=== PATIENT | female | born 1965 | race Caucasian/White ===

== ENCOUNTER 2017-12-07 22:40 | Inpatient (IN) | payer BC ==
[~2017-12-07] VITALS: Ht 154.9 cm; Wt 99.1 kg
[2017-12-08 01:49] VITALS: BP 137/68; PULSE 109; RESP 18; TEMP 100.2; O2SAT 97
[2017-12-08] MEDS ORDERED: ACETAMINOPHEN 325 MG TAB PO PRN (02:30)
[2017-12-08] MEDS ORDERED: NALOXONE HCL 0.4 MG/ML AMP IV PUSH PRN (02:30)
[2017-12-08] MEDS: AMPICILLIN-SULBACTAM INJ 3 GM in SODIUM CHLORIDE 0.9% INJ 100 ML IV SCH ×4 (03:24→21:14)
[2017-12-08 05:51] VITALS: BP 127/68; PULSE 87; RESP 20; TEMP 98.8; O2SAT 98
[2017-12-08 07:09] VITALS: BP 131/75; PULSE 91; RESP 18; TEMP 98.7; O2SAT 96
[2017-12-08] MEDS: SODIUM CHLORIDE 0.9% FLUSH 10 ML FLUSH IV FLUSH SCH ×2 (09:43→21:00)
[2017-12-08] MEDS: SODIUM CHLORIDE 0.9% FLUSH 10 ML FLUSH IV FLUSH PRN ×3 (11:01→15:05)
[2017-12-08] MEDS: MORPHINE SULFATE 2 MG/ML INJ IV PUSH PRN ×2 (11:01→15:06)
[2017-12-08 11:21] VITALS: BP 166/77; PULSE 95; RESP 18; TEMP 98.8; O2SAT 95
[2017-12-08 15:19] VITALS: BP 132/72; PULSE 92; RESP 18; TEMP 98.3; O2SAT 92
[2017-12-08] MEDS ORDERED: INSULIN DETEMIR 100 UNITS/ML VIAL SQ ONE (16:00)
--- NOTE | 2017-12-08 16:11 | HHI.HP ---
[facility]PI [facility] Primary Care Physician Quinten Alvarez MD Admission Diagnosis Diagnoses: Travel History International Travel<30 Days: No Contact w/Intl Traveler <30 Da: No Traveled to Known Affected Are: No History of Present Illness 52-year-old female with no significant past medical history who presents overnight with 3 day history of constant sharp pain in the left and radiating to her fingers. She was bitten by her dog 3 days ago. She denies any chest pain, shortness of breath, lightheadedness, dizziness. Review of Systems Except as stated in HPI: all other systems reviewed are Neg Past Family Social History Past Medical History Patient denies any past medical history Past Surgical History Partial hysterectomy Meniscal surgery on the right knee Reported Medications Patient denies taking any home medications Allergies: Coded Allergies: No Known Allergies (Verified Allergy, Severe, 12/07/17) Family History Mother secondary to cervical cancer Father secondary to ID in his 50s. Social History Non-smoker. Occasional drinker. Denies illicit drugs. Physical Exam Vital Signs Vital Signs Date Time Temp Pulse Resp B/P (MAP) Pulse Ox O2 Delivery O2 Flow Rate FiO2 12/08/17 15:19 98.3 92 18 132/72 (92) 92 12/08/17 11:21 98.8 95 18 166/77 (106) 95 12/08/17 07:09 98.7 91 18 131/75 (93) 96 12/08/17 05:51 98.8 87 20 127/68 (87) 98 12/08/17 01:49 100.2 109 18 137/68 (91) 97 Physical Exam GENERAL: This is a well-nourished, well-developed patient, in no apparent distress. Alert and oriented 4. SKIN: No rashes, ecchymoses or lesions. Cool and dry. HEAD: Atraumatic. Normocephalic. No temporal or scalp tenderness. EYES: Pupils equal round and reactive. Extraocular motions intact. No scleral icterus. No injection or drainage. ENT: Nose without bleeding, purulent drainage or septal hematoma. Throat without erythema, tonsillar hypertrophy or exudate. Uvula midline. Airway patent. NECK: Trachea midline. No JVD or lymphadenopathy. Supple, nontender, no meningeal signs. CARDIOVASCULAR: Regular rate and rhythm without murmurs, gallops, or rubs. RESPIRATORY: Clear to auscultation. Breath sounds equal bilaterally. No wheezes , rales, or rhonchi. GASTROINTESTINAL: Abdomen soft, non-tender, nondistended. No hepato-splenomegaly , or palpable masses. No guarding. MUSCULOSKELETAL: Extremities without clubbing, cyanosis, or edema. Left hand with swelling, induration and erythema on the dorsum with clear drainage from puncture lesion posteriorly. Tender to palpation. Otherwise no joint tenderness, effusion, or edema noted. No calf tenderness. Negative Homans sign bilaterally. NEUROLOGICAL: Awake and alert. Cranial nerves II through XII intact. Motor and sensory grossly within normal limits. Five out of 5 muscle strength in all muscle groups. Normal speech. Imaging CT scan from deltoid the ER reviewed. Caprini VTE Risk Assessment Caprini VTE Risk Assessment: No/Low Risk (score <= 1) Caprini Risk Assessment Model Point Value = 1 Point Value = 2 Point Value = 3 Point Value = 5 Age 41-60 Minor surgery BMI > 25 kg/m2 Swollen legs Varicose veins or History of unexplained or recurrent spontaneous Oral contraceptives or hormone replacement Sepsis (< 1 month) Serious lung disease, including pneumonia (< 1 month) Abnormal pulmonary function Acute myocardial infarction Congestive heart failure (< 1 month) History of inflammatory bowel disease Medical patient at bed rest Age 61-74 Arthroscopic surgery Major open surgery (> 45 min) Laparoscopic surgery (> 45 min) Malignancy Confined to bed (> 72 hours) Immobilizing plaster cast Central venous access Age >= 75 History of VTE Family history of VTE Factor V Leiden Prothrombin [id number] Lupus anticoagulant Anticardiolipin antibodies Elevated serum homocysteine Heparin-induced thrombocytopenia Other congenital or acquired thrombophilia Stroke (< 1 month) Elective arthroplasty Hip, pelvis, or leg fracture Acute spinal cord injury (< 1 month) Prophylaxis Regimen Total Risk Factor Score Risk Level Prophylaxis Regimen 0-1 Low Early ambulation 2 Moderate Order ONE of the following: *Sequential Compression Device (SCD) *Heparin 5000 units SQ BID 3-4 Higher Order ONE of the following medications: *Heparin 5000 units SQ TID *Enoxaparin/Lovenox 40 mg SQ daily (WT < 150 kg, CrCl > 30 mL/min) *Enoxaparin/Lovenox 30 mg SQ daily (WT < 150 kg, CrCl > 10-29 mL/min) *Enoxaparin/Lovenox 30 mg SQ BID (WT < 150 kg, CrCl > 30 mL/min) AND/OR *Sequential Compression Device (SCD) 5 or more Highest Order ONE of the following medications: *Heparin 5000 units SQ TID (Preferred with Epidurals) *Enoxaparin/Lovenox 40 mg SQ daily (WT < 150 kg, CrCl > 30 mL/min) *Enoxaparin/Lovenox 30 mg SQ daily (WT < 150 kg, CrCl > 10-29 mL/min) *Enoxaparin/Lovenox 30 mg SQ BID (WT < 150 kg, CrCl > 30 mL/min) AND *Sequential Compression Device (SCD) Assessment and Plan Assessment and Plan //Dog bite left hand. //Possible severe sepsis on admission. Temperature 100.2, tachycardic 109. Severe secondary to hyperglycemia -Blood cultures and wound cultures pending. CT does not indicate osteomyelitis. -Continue on Unasyn. -Hand surgery following. Appreciate assistance. //Hyperglycemia. Blood glucose in 350s, likely secondary to infection. Check A1c. Start patient on insulin sliding scale. Discussed Condition With Patient, nurse Physician Certification 2 Midnight Certification Type: Admission for Inpatient Services Order for Inpatient Services The services are ordered in accordance with Medicare regulations or non- Medicare payer requirements, as applicable. In the case of services not specified as inpatient-only, they are appropriately provided as inpatient services in accordance with the 2-midnight benchmark. Estimated LOS (days): 2 days is the estimated time the patient will need to remain in the hospital, assuming treatment plan goals are met and no additional complications. Post-Hospital Plan: Not yet determined Garcia Spaulding MD Dec 08, 2017 16:11
[2017-12-08] MEDS ORDERED: GLUCAGON 1 MG/ML VIAL OTHER PRN (16:15)
[2017-12-08] MEDS ORDERED: DEXTROSE 50% IN WATER 50 ML VIAL(D50) IV PUSH PRN (16:15)
[2017-12-08] MEDS: INSULIN ASPART SUPPLEMENTAL SCALE SQ SCH ×2 (17:08→21:00)
[2017-12-08] MEDS ORDERED: BUPIVACAINE HCL PF 0.5% 30 ML VIAL ONE (19:09)
[2017-12-08] MEDS ORDERED: BACITRACIN TOP OINT 15 GM TUBE ONE (19:09)
[2017-12-08] MEDS ORDERED: LIDOCAINE HCL 2% 50 ML VIAL ONE (19:09)
[2017-12-08] MEDS ORDERED: NEOMYCIN/POLYMYXIN 1 ML G.U. IRRIGANT ONE (19:13)
--- NOTE | 2017-12-08 19:17 | MB ---
cc: Madi Newberry MD DATE: 12/08/2017 REASON FOR CONSULTATION: Left hand infection. HISTORY OF PRESENT ILLNESS: The patient is a 52-year-old right-hand dominant female who presented to the ED with complaints of dog bite to the left hand 3 days ago. She has been complaining of worsening pain and swelling over the dorsal aspect of the left hand. The patient was seen at [facility] [place] [facility]. She had opening up of the wound and transferred to [facility]. She has been getting IV antibiotics. Complains of constant throbbing pain. Denies any tingling, numbness. Complains of mild drainage from the region. Denies any other injuries. PAST MEDICAL HISTORY: Noted. No significant past medical history. The patient was found to have elevated blood sugar of more than 300 last night. PHYSICAL EXAMINATION: GENERAL: The patient is alert, oriented x 3. EXTREMITIES: Left hand reveals bite alanis over the dorsal aspect of the hand over the MP joint region of the index finger, another wound noted over the radial aspect of the MP joint of the index finger. Surrounding swelling and erythema noted. Tenderness noted over that region. Range of motion of the index finger is limited and painful. She has intact distal sensation. The patient is unable to make a full fist. She has intact distal capillary refill. LABORATORY DATA: Her lab work was reviewed. She has a white count of 10.4 and shift of 70%. She had a CT scan of the left upper extremity shows evidence of soft tissue swelling of the dorsal aspect of the hand. No evidence of drainable collection. ASSESSMENT: A 52-year-old female with a dog bite and infection to the left hand questionable index finger MP joint involvement PLAN: Will be to take her emergently for incision and drainage of left hand infection possible joint drainage. We will keep the patient n.p.o. The patient is advised to keep the part elevated. We will continue with IV antibiotics. Madi Newberry MD SE/CROW , 07:00 PM , 07:15 PM SAMSON
--- NOTE | 2017-12-08 19:21 | EKG ---
Date Performed: 12/08/2017 Time Performed: 16:28:50 PTAGE: 52 years EKG: Sinus rhythm NORMAL ECG NO PREVIOUS TRACING DOCTOR: Janak Fletcher Interpretating Date/Time 12/08/2017 19:20:56
[2017-12-08] MEDS ORDERED: AMPICILLIN-SULBACTAM INJ 3 GM VIAL ONE (20:52)
[2017-12-08] MEDS: INSULIN DETEMIR 100 UNITS/ML VIAL SQ SCH (21:00)
--- NOTE | 2017-12-08 21:50 | PD.OP ---
Operative Report Preoperative Diagnosis: (1) Dog bite of left hand including fingers with infection Postoperative Diagnosis: (1) septic arthritis metacarpophalangeal joint left index finger (2) Dog bite of left hand including fingers with infection Procedure: incision and drainage left hand abscess arthrotomy metacarpophalangeal joint left index finger Anesthesia: general Surgeon: Madi Newberry Loading Dock Helper(s): dior Operation and Findings: abscess with involvement of MP joint left index finger Madi Newberry MD Dec 08, 2017 21:50
[2017-12-08] MEDS ORDERED: DO NOT ADM ANY ANTICOAGULANT DRUGS PRN (22:15)
[2017-12-08] MEDS ORDERED: *morphine SULFATE 4 MG/ML PERIprocedure ONLY ONE (22:33)
[2017-12-09] MEDS: AMPICILLIN-SULBACTAM INJ 3 GM in SODIUM CHLORIDE 0.9% INJ 100 ML IV SCH ×4 (03:00→22:01)
[2017-12-09 06:03] LABS: AUTOMATED NEUTROPHIL # 6.9 TH/MM3 (1.8-7.7); BASOPHIL % 0.2 % (0.0-2.0); HEMATOCRIT 38.4 % (35.0-46.0); HEMOGLOBIN 13.4 GM/DL (11.6-15.3); LYMPHOCYTE # 0.7 TH/MM3 (1.0-4.8); MEAN CELL VOLUME 87.7 FL (80.0-100.0); MEAN CORPUSCULAR HEMOGLOBIN 30.5 PG (27.0-34.0); MEAN CORPUSCULAR HGB CONC 34.7 % (32.0-36.0); MEAN PLATELET VOLUME 8.7 FL (7.0-11.0); MONO % 2.5 % (0.0-8.0); MONOCYTE # 0.2 TH/MM3 (0-0.9); NEUT % 88.3 % (16.0-70.0); PLATELET COUNT 195 TH/MM3 (150-450); RED BLOOD COUNT 4.38 MIL/MM3 (4.00-5.30); RED CELL DISTRIBUTION WIDTH 12.3 % (11.6-17.2); WHITE BLOOD COUNT 7.8 TH/MM3 (4.0-11.0)
[2017-12-09 06:33] LABS: BICARBONATE 25.6 MEQ/L (21.0-32.0); CALCIUM 8.9 MG/DL (8.5-10.1); CREATININE 0.76 MG/DL (0.50-1.00)
[2017-12-09] MEDS: INSULIN ASPART SUPPLEMENTAL SCALE SQ SCH ×4 (06:49→22:09)
[2017-12-09] MEDS: SODIUM CHLORIDE 0.9% FLUSH 10 ML FLUSH IV FLUSH SCH ×2 (09:00→22:09)
[2017-12-09] MEDS: INSULIN DETEMIR 100 UNITS/ML VIAL SQ SCH ×2 (09:00→22:03)
[2017-12-09 12:00] VITALS: BP 139/78; PULSE 82; RESP 19; TEMP 98.1; O2SAT 94
--- NOTE | 2017-12-09 13:09 | MP ---
cc: Madi Newberry MD DATE OF OPERATION: 12/08/2017 PREOPERATIVE DIAGNOSIS: Dog bite with abscess, left hand/index finger. POSTOPERATIVE DIAGNOSIS: Dog bite with abscess, left hand/index finger and septic arthritis metacarpophalangeal joint, left index finger. PROCEDURE PERFORMED: Incision and drainage of left hand abscess and arthrotomy and drainage index finger metacarpophalangeal joint, left hand. SURGEON: Madi Newberry MD ANESTHESIA: General. ESTIMATED BLOOD LOSS: 5 mL TOURNIQUET TIME: 17 minutes at 250 mmHg. SPECIMENS: Sent for culture and sensitivity from the left index finger MP joint. DISPOSITION: To PACU stable. INDICATIONS FOR PROCEDURE: The patient is a 52-year-old female who presented with complaints of dog bite to the left hand, 3 days ago. She complained of pain over the left hand and index finger. On examination, she had pain and swelling over the dorsal aspect of the hand, with purulent drainage from index finger MP joint region. She had elevated white count. X-ray showed soft tissue shadow. CT scan showed no evidence of collection. She was consented for incision and drainage of left hand abscess. The patient was explained the risks and benefits of the procedure. DETAILS OF PROCEDURE: The patient was brought to the operating room under general anesthesia. The left upper extremity was sterilely prepped and draped. After limb elevation, tourniquet was inflated to 250 mmHg. Incision site was marked over the dorsoulnar aspect of the MP joint region of the index finger, corresponding to the bite reyes. An incision was made over the proposed incision site after limb elevation and tourniquet inflation. Soft tissue dissection was carried out. There was extensive inflammatory tissue on the abscess over the dorsal aspect of the index finger MP joint region, involving the subcutaneous location. On further exploration, there was evidence of purulent material draining from the MP joint of the index finger. Hence, a decision was made to proceed with arthrotomy of the index finger MP joint. An incision was made in the longitudinal fashion along the ulnar aspect of the MP joint. On further exploration, there was evidence of purulent material within the MP joint. Material was sent for culture and sensitivity. A piece of capsule was excised and sent for culture and sensitivity. Thorough wash was given using normal saline mixed with irrigant and hydrogen peroxide. Excisional debridement of devitalized tissue was carried out. The edges of the skin was excised, corresponding to the bite. Another bite reyes, over the volar radial aspect of the index finger was explored. No evidence of purulent material was noted in the region. Packing of the MP joint was carried out. The skin was then loosely approximated using 4-0 nylon in a horizontal mattress interrupted fashion. Tourniquet was deflated. Total tourniquet time was 70 minutes. The patient had good distal circulation of at the end of the procedure. Bulky hand dressing was applied, which was held in place by bias hand wrap. We will continue with IV antibiotics. Followup cultures. We will obtain ID recommendation for IV antibiotics and Hand Surgery followup. Madi Newberry MD SE/CHARIS , 09:54 PM , 10:19 PM SAMSON
--- NOTE | 2017-12-09 15:03 | HHI.PR ---
Subjective Remarks complains of mild pain Lot better compared to prior to surgery complaint with limb elevation denies any numbness no fever Objective Vital Signs Date Time Temp Pulse Resp B/P (MAP) Pulse Ox O2 Delivery O2 Flow Rate FiO2 12/09/17 12:00 86 18 118/64 (82) 94 Room Air 12/09/17 08:20 18 95 Room Air 12/09/17 08:00 97.9 72 18 146/70 (95) 95 12/09/17 04:00 98.1 88 16 130/65 (86) 96 Nasal Cannula 3 12/09/17 00:00 138 18 138/67 (90) 95 Nasal Cannula 3 12/08/17 23:00 97 18 140/69 (92) 94 Nasal Cannula 3 12/08/17 22:45 97 18 135/66 (89) 94 Nasal Cannula 3 12/08/17 22:30 100 20 147/72 (97) 94 Nasal Cannula 3 12/08/17 22:15 98 20 145/67 (93) 94 Nasal Cannula 3 12/08/17 22:00 101 22 146/69 (94) 94 Nasal Cannula 3 12/08/17 21:50 98.9 104 20 104/20 (48) 97 Nasal Cannula 3 12/08/17 15:19 98.3 92 18 132/72 (92) 92 I/O 12/08/17 12/08/17 12/08/17 12/09/17 12/09/17 12/09/17 07:00 15:00 23:00 07:00 15:00 23:00 Intake Total 200 ml 500 ml 600 ml Output Total 5 ml 800 ml Balance 200 ml 495 ml -200 ml Intake Oral 600 ml IV Total 200 ml Other 500 ml Output Urine Total 800 ml Estimated Blood Loss 5 ml # Voids 2 2 left hand: dressing and packing in place decreased swelling no drainage Index finger MP joint range of motion is painful and limited intact sensation distally white count normalized Result Diagram: 12/09/17 0533 12/09/17 0533 Assessment and Plan Assessment and Plan 52 year old female s/p I and D, arthrotomy Index finger MP joint POD 1 Plan: packing pulled out a cm dry dressing applied continue with limb elevation and range of motion exercises continue IV antibiotics ID consultation for septic arthritis antibiotics. hand surgery will follow. Madi Newberry MD Dec 09, 2017 15:02
[2017-12-09 16:00] VITALS: BP 133/73; PULSE 93; RESP 18; TEMP 98.3; O2SAT 93
--- NOTE | 2017-12-09 17:00 | HHI.PR ---
Objective Vital Signs Date Time Temp Pulse Resp B/P (MAP) Pulse Ox O2 Delivery O2 Flow Rate FiO2 12/09/17 12:00 98.1 82 19 139/78 (98) 94 12/09/17 12:00 86 18 118/64 (82) 94 Room Air 12/09/17 08:20 18 95 Room Air 12/09/17 08:00 97.9 72 18 146/70 (95) 95 12/09/17 04:00 98.1 88 16 130/65 (86) 96 Nasal Cannula 3 12/09/17 00:00 138 18 138/67 (90) 95 Nasal Cannula 3 12/08/17 23:00 97 18 140/69 (92) 94 Nasal Cannula 3 12/08/17 22:45 97 18 135/66 (89) 94 Nasal Cannula 3 12/08/17 22:30 100 20 147/72 (97) 94 Nasal Cannula 3 12/08/17 22:15 98 20 145/67 (93) 94 Nasal Cannula 3 12/08/17 22:00 101 22 146/69 (94) 94 Nasal Cannula 3 12/08/17 21:50 98.9 104 20 104/20 (48) 97 Nasal Cannula 3 I/O 12/08/17 12/08/17 12/08/17 12/09/17 12/09/17 12/09/17 06:59 14:59 22:59 06:59 14:59 22:59 Intake Total 200 ml 500 ml 600 ml Output Total 5 ml 800 ml Balance 200 ml 495 ml -200 ml Intake Oral 600 ml IV Total 200 ml Other 500 ml Output Urine Total 800 ml Estimated Blood Loss 5 ml # Voids 2 2 Result Diagram: 12/09/17 0533 12/09/17 0533 Objective Remarks GENERAL: sitting up in bed. AAOx3 SKIN: Warm and dry. HEAD: Normocephalic. EYES: No scleral icterus. No injection or drainage. NECK: Supple, trachea midline. No JVD. CARDIOVASCULAR: Regular rate and rhythm without murmurs, gallops, or rubs. RESPIRATORY: Breath sounds equal bilaterally. No accessory muscle use. GASTROINTESTINAL: Abdomen soft, non-tender, nondistended. MUSCULOSKELETAL: No cyanosis, or edema. lef hand dressed, elevated. BACK: Nontender without obvious deformity. No CVA tenderness. A/P Assessment and Plan //Dog bite left hand. //Possible severe sepsis on admission. Temperature 100.2, tachycardic 109. Severe secondary to hyperglycemia -Blood cultures and wound cultures pending. CT does not indicate osteomyelitis. -Continue on Unasyn. -Hand surgery following. Appreciate assistance. =12/09 2/p surgical debridement. GPC WC. start VANC. consult ID as per hand surgery //Hyperglycemia. Blood glucose in 350s, likely secondary to infection. Check A1c. Start patient on insulin sliding scale. Discharge Planning cont IV ABX for hand infection Garcia Spaulding MD Dec 09, 2017 17:00
[2017-12-09 17:57] LABS: HEMOGLOBIN A1C 9.7 % (4.3-6.0)
[2017-12-09] MEDS: MORPHINE SULFATE 2 MG/ML INJ IV PUSH PRN (18:10)
[2017-12-09] MEDS: VANCOMYCIN INJ 1,250 MG in SODIUM CHLOR 0.9% 250 ML INJ 250 ML IV SCH (18:36)
[2017-12-09 20:11] VITALS: BP 129/63; PULSE 94; RESP 17; TEMP 98.4; O2SAT 94
[2017-12-10 00:30] VITALS: BP 123/58; PULSE 84; RESP 17; TEMP 98.3; O2SAT 95
[2017-12-10] MEDS: AMPICILLIN-SULBACTAM INJ 3 GM in SODIUM CHLORIDE 0.9% INJ 100 ML IV SCH ×4 (03:57→19:56)
[2017-12-10 04:47] VITALS: BP 150/62; PULSE 77; RESP 17; TEMP 98.1; O2SAT 97
[2017-12-10] MEDS: VANCOMYCIN INJ 1,250 MG in SODIUM CHLOR 0.9% 250 ML INJ 250 ML IV SCH (05:42)
[2017-12-10 08:00] VITALS: BP 142/62; PULSE 77; RESP 18; TEMP 98.1; O2SAT 95
[2017-12-10] MEDS: SODIUM CHLORIDE 0.9% FLUSH 10 ML FLUSH IV FLUSH SCH ×2 (09:00→19:57)
[2017-12-10] MEDS: INSULIN ASPART SUPPLEMENTAL SCALE SQ SCH ×4 (09:25→20:53)
[2017-12-10] MEDS: INSULIN DETEMIR 100 UNITS/ML VIAL SQ SCH ×2 (09:28→20:53)
--- NOTE | 2017-12-10 11:15 | HHI.PR ---
Subjective Remarks Follow up for dog bite wound. Patient is currently doing well. No chest pain, shortness of breath, fever or chills. Patient did not know she has diabetes. Objective Vitals Vital Signs Date Time Temp Pulse Resp B/P (MAP) Pulse Ox O2 Delivery O2 Flow Rate FiO2 12/10/17 08:00 98.1 77 18 142/62 (88) 95 12/10/17 04:47 98.1 77 17 150/62 (91) 97 12/10/17 00:30 98.3 84 17 123/58 (79) 95 12/09/17 20:11 98.4 94 17 129/63 (85) 94 12/09/17 16:00 98.3 93 18 133/73 (93) 93 12/09/17 12:00 98.1 82 19 139/78 (98) 94 12/09/17 12:00 86 18 118/64 (82) 94 Room Air I/O 12/09/17 12/09/17 12/09/17 12/10/17 12/10/17 12/10/17 07:00 15:00 23:00 07:00 15:00 23:00 Intake Total 600 ml 932 ml Output Total 800 ml Balance -200 ml 932 ml Intake Oral 600 ml 480 ml IV Total 452 ml Output Urine Total 800 ml # Voids 3 Result Diagram: 12/09/17 0533 12/09/17 0533 Objective Remarks GENERAL: AOX3, NAD. SKIN: Warm and dry. HEAD: Normocephalic. EYES: No scleral icterus. No injection or drainage. NECK: Supple, trachea midline. No JVD or lymphadenopathy. CARDIOVASCULAR: Regular rate and rhythm without murmurs, gallops, or rubs. RESPIRATORY: Breath sounds equal bilaterally. No accessory muscle use. GASTROINTESTINAL: Abdomen soft, non-tender, nondistended. MUSCULOSKELETAL: No cyanosis, or edema. Left arm tied to pole to keep elevated. Able to move fingers. BACK: Nontender without obvious deformity. No CVA tenderness. Procedures 12/08/2017 incision and drainage left hand abscess arthrotomy metacarpophalangeal joint left index finger A/P Problem List: (1) Dog bite of left hand including fingers with infection ICD Code: S61.452A - Open bite of left hand, initial encounter; S61.259A - Open bite of unspecified finger without damage to nail, initial encounter; L08.9 - Local infection of the skin and subcutaneous tissue, unspecified; W54.0XXA - Bitten by dog, initial encounter (2) Diabetes mellitus ICD Code: E11.9 - Type 2 diabetes mellitus without complications Assessment and Plan Ms. Blevins is a 52 year old female who was admitted due to left hand pain, swelling following a dog bite. Her dog is vaccinated. - Dog bite wound of left hand - Left hand abscess - Wound cx grew MSSA resistant to PCN. Will d/c Vancomycin. - Currently on Unasyn. We can likely discharge patient on Augmentin or consider Moxifloxacin monotherapy. - Infectious disease consultation pending. - Diabetes mellitus - HbA1c 9.7. Currently on Levemir 5 units Q12, Sliding scale insulin. - Will initiate Metformin and Glimepiride upon discharge. Follow up HbA1C in 3 month. - Will also refer patient to [employer]. Full code. SCDs. Discharge plan pending hand surgery and ID input. Mari Montes DO Dec 10, 2017 11:15 am
[2017-12-10 12:00] VITALS: BP 129/66; PULSE 76; RESP 18; TEMP 98.4; O2SAT 95
[2017-12-10 16:00] VITALS: BP 146/84; PULSE 84; RESP 18; TEMP 99; O2SAT 96
--- NOTE | 2017-12-10 17:57 | PD.ID.CON ---
History of Present Illness Service ID Consult Requested By Dr Spaulding Reason for Consult L hand dog bite Primary Care Physician Quinten Alvarez MD Diagnoses: History of Present Illness 52 yo female presented 2 days post her dog has bitten her into L hand She presented to [place] ER with worsening swelling redness and pain and was seen by Dr Rai She was taken to OR and had Incision and drainage of left hand abscess and arthrotomy and drainage index finger metacarpophalangeal joint, left hand yday Clx is growing MSSA Pain, swerlling improved On presentation fever, chills, temp up to 100.2, no leukocytosis Today fever resolved Also newly diagnosed DM on this admission Dog is the pt's own dog, 8 y.o. 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 Social History Non-smoker. Occasional drinker. Denies illicit drugs. Physical Exam Vital Signs Vital Signs Date Time Temp Pulse Resp B/P (MAP) Pulse Ox O2 Delivery O2 Flow Rate FiO2 12/10/17 16:00 99.0 84 18 146/84 (104) 96 12/10/17 12:00 98.4 76 18 129/66 (87) 95 12/10/17 08:00 98.1 77 18 142/62 (88) 95 12/10/17 04:47 98.1 77 17 150/62 (91) 97 12/10/17 00:30 98.3 84 17 123/58 (79) 95 12/09/17 20:11 98.4 94 17 129/63 (85) 94 Physical Exam CONSTITUTIONAL/GENERAL: This is an adequately nourished patient, in no apparent distress. TUBES/LINES/DRAINS: SKIN: No jaundice, rashes, or lesions. Skin temperature appropriate. Not diaphoretic. HEAD: Atraumatic. Normocephalic. EYES: Pupils equal and round and reactive. Extraocular motions intact. No scleral icterus. No injection or drainage. Fundi not examined. ENT: Hearing grossly normal. Nose without bleeding or purulent drainage. Throat without visible erythema, exudates, masses, or lesions. NECK: Trachea midline. Supple, nontender. No palpable thyroid enlargement or nodularity. CARDIOVASCULAR: Regular rate and rhythm without murmurs, gallops, or rubs. No JVD. Peripheral pulses symmetric. RESPIRATORY/CHEST: Symmetric, unlabored respirations. Clear to auscultation. Breath sounds equal bilaterally. No wheezes, rales, or rhonchi. GASTROINTESTINAL: Abdomen soft, non-tender, nondistended. No hepato-splenomegaly , or palpable masses. No guarding. Bowel sounds present. MUSCULOSKELETAL: Extremities without clubbing, cyanosis, or edema. No joint tenderness or effusion noted. No calf tenderness. No mottling or clubbing. STATUS LOCALIS: L hand with residual small amount of barely noticible erythema + wrinkling cw diminishing edema, erythema Incision over 1 St MCP joint, packed with small amount of purulence upon packing removal minimal surraondinfg erythema, mils edema LYMPHATICS: No palpable epithroclear and axillae adenopathy. NEUROLOGICAL: Awake and alert. Motor and sensory grossly within normal limits. Follows commands. Cognitively sharp. Moves all extremities. PSYCHIATRIC: No obvious anxiety/depression. no apparent hallucinations or other psychotic thought process. Laboratory Date/Time Source Procedure Growth Status 12/09/17 00:04 Wound Finger Fungal Smear - Final NO FUNGAL ELEMENTS SEEN. Resulted 12/09/17 00:04 Wound Finger Fungal Culture Pending Resulted Result Diagram: 12/09/1733 12/09/1733 Assessment and Plan Assessment and Plan Sp dog bite with abscess, left hand/index finger and septic arthritis metacarpophalangeal joint, left index finger, MSSA sp I+D cont Unasyn for now fu cl untill final Discussed Condition With Dr Newberry @ b/s Judy Gardner MD Dec 10, 2017 17:57
--- NOTE | 2017-12-10 19:14 | HHI.PR ---
Subjective Remarks complains of mild pain complaint with limb elevation denies any numbness no fever Objective Vital Signs Date Time Temp Pulse Resp B/P (MAP) Pulse Ox O2 Delivery O2 Flow Rate FiO2 12/10/17 16:00 99.0 84 18 146/84 (104) 96 12/10/17 12:00 98.4 76 18 129/66 (87) 95 12/10/17 08:00 98.1 77 18 142/62 (88) 95 12/10/17 04:47 98.1 77 17 150/62 (91) 97 12/10/17 00:30 98.3 84 17 123/58 (79) 95 12/09/17 20:11 98.4 94 17 129/63 (85) 94 I/O 12/09/17 12/09/17 12/09/17 12/10/17 12/10/17 12/10/17 07:00 15:00 23:00 07:00 15:00 23:00 Intake Total 600 ml 932 ml Output Total 800 ml Balance -200 ml 932 ml Intake Oral 600 ml 480 ml IV Total 452 ml Output Urine Total 800 ml # Voids 3 examination of the left hand; dressing and packing in place mild swelling and erythema noted minimal drainage range of motion of the index finger is limited and painful intact sensation distally cultures: staph Result Diagram: 12/09/17 0533 12/09/1733 Assessment and Plan Assessment and Plan 52 year old female s/p I and D, arthrotomy Index finger MP joint POD 2 Plan: packing pulled out. dry dressing applied continue with limb elevation and range of motion exercises continue IV antibiotics ID consultation for septic arthritis antibiotics. hand surgery will follow. Madi Newberry MD Dec 10, 2017 19:14
[2017-12-10] MEDS: MORPHINE SULFATE 2 MG/ML INJ IV PUSH PRN (19:57)
[2017-12-10 21:30] VITALS: BP 141/72; PULSE 82; RESP 18; TEMP 98.8; O2SAT 95
[2017-12-11] VITALS: BP 140/65; PULSE 84; RESP 18; TEMP 99.2; O2SAT 93
[2017-12-11] MEDS: AMPICILLIN-SULBACTAM INJ 3 GM in SODIUM CHLORIDE 0.9% INJ 100 ML IV SCH ×4 (03:28→22:27)
[2017-12-11 04:00] VITALS: BP 141/70; PULSE 75; RESP 18; TEMP 98.5; O2SAT 97
[2017-12-11 08:00] VITALS: BP 142/72; PULSE 75; RESP 18; TEMP 98.2; O2SAT 93
[2017-12-11] MEDS: INSULIN ASPART SUPPLEMENTAL SCALE SQ SCH ×4 (09:26→21:00)
[2017-12-11] MEDS: INSULIN DETEMIR 100 UNITS/ML VIAL SQ SCH ×2 (09:26→21:00)
[2017-12-11] MEDS: SODIUM CHLORIDE 0.9% FLUSH 10 ML FLUSH IV FLUSH SCH ×2 (09:28→22:27)
[2017-12-11 12:00] VITALS: BP 143/78; PULSE 76; RESP 18; TEMP 98.5; O2SAT 93
[2017-12-11 16:00] VITALS: BP 148/80; PULSE 74; RESP 18; TEMP 98.2; O2SAT 97
--- NOTE | 2017-12-11 16:25 | HHI.PR ---
Subjective Remarks Follow up for dog bite wound, septic arthritis. Patient is currently doing well. No fever or chills. She is able to move her fingers more. Still has some pain on movement of her fingers. Objective Vitals Vital Signs Date Time Temp Pulse Resp B/P (MAP) Pulse Ox O2 Delivery O2 Flow Rate FiO2 12/11/17 12:00 98.5 76 18 143/78 (99) 93 12/11/17 08:00 98.2 75 18 142/72 (95) 93 12/11/17 04:00 98.5 75 18 141/70 (93) 97 12/11/17 00:00 99.2 84 18 140/65 (90) 93 12/10/17 21:30 98.8 82 18 141/72 (95) 95 I/O 12/10/17 12/10/17 12/10/17 12/11/17 12/11/17 12/11/17 07:00 15:00 23:00 07:00 15:00 23:00 Intake Total 932 ml 340 ml 100 ml Balance 932 ml 340 ml 100 ml Intake Oral 480 ml 240 ml IV Total 452 ml 100 ml 100 ml # Voids 3 2 1 # Bowel Movements 1 0 Result Diagram: 12/09/17 0533 12/09/17 0533 Objective Remarks GENERAL: AOX3, NAD. SKIN: Warm and dry. HEAD: Normocephalic. EYES: No scleral icterus. No injection or drainage. NECK: Supple, trachea midline. No JVD or lymphadenopathy. CARDIOVASCULAR: Regular rate and rhythm without murmurs, gallops, or rubs. RESPIRATORY: Breath sounds equal bilaterally. No accessory muscle use. GASTROINTESTINAL: Abdomen soft, non-tender, nondistended. MUSCULOSKELETAL: No cyanosis, or edema. Left arm tied to pole to keep elevated. Able to move fingers. BACK: Nontender without obvious deformity. No CVA tenderness. Procedures 12/08/2017 incision and drainage left hand abscess arthrotomy metacarpophalangeal joint left index finger A/P Problem List: (1) Dog bite of left hand including fingers with infection ICD Code: S61.452A - Open bite of left hand, initial encounter; S61.259A - Open bite of unspecified finger without damage to nail, initial encounter; L08.9 - Local infection of the skin and subcutaneous tissue, unspecified; W54.0XXA - Bitten by dog, initial encounter (2) Diabetes mellitus ICD Code: E11.9 - Type 2 diabetes mellitus without complications Assessment and Plan Ms. Blevins is a 52 year old female who was admitted due to left hand pain, swelling following a dog bite. Her dog is vaccinated. - Dog bite wound of left hand - Left hand abscess - Wound cx grew MSSA resistant to PCN. Will d/c Vancomycin. - Currently on Unasyn. We can likely discharge patient on Augmentin or consider Moxifloxacin monotherapy. - Infectious disease evaluated patient and continued Unasyn - Diabetes mellitus - HbA1c 9.7. Currently on Levemir 5 units Q12, Sliding scale insulin. - Will initiate Metformin and Glimepiride upon discharge. Follow up HbA1C in 3 month. - Will also refer patient to [facility] [facility]. Full code. SCDs, ambulation. Mari Montes DO Dec 11, 2017 4:25 pm
[2017-12-11] MEDS ORDERED: TRAM50TA PO (16:26)
--- NOTE | 2017-12-11 18:16 | HHI.PR ---
Subjective Remarks complains of mild pain complains of stiffness complaint with limb elevation denies any numbness no fever Objective Vital Signs Date Time Temp Pulse Resp B/P (MAP) Pulse Ox O2 Delivery O2 Flow Rate FiO2 12/11/17 16:00 98.2 74 18 148/80 (102) 97 12/11/17 12:00 98.5 76 18 143/78 (99) 93 12/11/17 08:00 98.2 75 18 142/72 (95) 93 12/11/17 04:00 98.5 75 18 141/70 (93) 97 12/11/17 00:00 99.2 84 18 140/65 (90) 93 12/10/17 21:30 98.8 82 18 141/72 (95) 95 I/O 12/10/17 12/10/17 12/10/17 12/11/17 12/11/17 12/11/17 07:00 15:00 23:00 07:00 15:00 23:00 Intake Total 932 ml 340 ml 100 ml Balance 932 ml 340 ml 100 ml Intake Oral 480 ml 240 ml IV Total 452 ml 100 ml 100 ml # Voids 3 2 1 # Bowel Movements 1 0 examination of the left hand: dressing in place decreased swelling and erythema minimal drainage painful and limited range of motion of the index finger at the MP joint cultures: MSSA Result Diagram: 12/09/17 0533 12/09/17 0533 Assessment and Plan Assessment and Plan 52 year old female s/p I and D, arthrotomy Index finger MP joint POD 3 Plan: dry dressing applied continue with limb elevation and range of motion exercises continue IV antibiotics based on ID recommendations hand surgery will follow. Madi Newberry MD Dec 11, 2017 18:16
[2017-12-11 20:15] VITALS: BP 164/74; PULSE 85; RESP 17; TEMP 98.8; O2SAT 95
[2017-12-12] VITALS: BP 150/67; PULSE 88; RESP 19; TEMP 97.6; O2SAT 96
[2017-12-12 03:15] VITALS: BP 142/79; PULSE 73; RESP 17; TEMP 98; O2SAT 94
[2017-12-12] MEDS: AMPICILLIN-SULBACTAM INJ 3 GM in SODIUM CHLORIDE 0.9% INJ 100 ML IV SCH ×4 (03:45→21:16)
[2017-12-12 08:00] VITALS: BP 127/60; PULSE 72; RESP 18; TEMP 98; O2SAT 95
[2017-12-12] MEDS: INSULIN ASPART SUPPLEMENTAL SCALE SQ SCH ×4 (08:00→21:42)
[2017-12-12] MEDS: SODIUM CHLORIDE 0.9% FLUSH 10 ML FLUSH IV FLUSH SCH ×2 (09:17→21:16)
[2017-12-12] MEDS: INSULIN DETEMIR 100 UNITS/ML VIAL SQ SCH ×2 (09:18→21:41)
--- NOTE | 2017-12-12 12:13 | HHI.PR ---
Subjective Remarks complains of mild pain complains of stiffness complaint with limb elevation denies any numbness no fever Objective Vital Signs Date Time Temp Pulse Resp B/P (MAP) Pulse Ox O2 Delivery O2 Flow Rate FiO2 12/12/17 08:00 98.0 72 18 127/60 (82) 95 12/12/17 03:15 98.0 73 17 142/79 (100) 94 12/12/17 00:00 97.6 88 19 150/67 (94) 96 12/11/17 20:15 98.8 85 17 164/74 (104) 95 12/11/17 16:00 98.2 74 18 148/80 (102) 97 I/O 12/11/17 12/11/17 12/11/17 12/12/17 12/12/17 12/12/17 07:00 15:00 23:00 07:00 15:00 23:00 Intake Total 100 ml 900 ml 1000 ml Balance 100 ml 900 ml 1000 ml Intake Oral 900 ml 1000 ml IV Total 100 ml # Voids 1 2 3 # Bowel Movements 0 0 0 examination of left hand: dressing in place mild swelling and redness noted over the MP joint region minimal drainage terminal degrees of flexion and extension of the MP joint is limited and painful cultures: MSSA Result Diagram: 12/09/1733 12/09/1733 Assessment and Plan Assessment and Plan 52 year old female s/p I and D, arthrotomy Index finger MP joint POD 4 Plan: suture removed, wound opened up and washed with normal saline dry dressing applied continue with limb elevation and range of motion exercises continue IV antibiotics based on ID recommendations hand surgery will follow. Madi Newberry MD Dec 12, 2017 12:13
[2017-12-12 16:00] VITALS: BP 111/86; PULSE 107; RESP 18; TEMP 98.5; O2SAT 96
[2017-12-12 21:20] VITALS: BP 136/73; PULSE 84; RESP 18; TEMP 97.9; O2SAT 96
[2017-12-12] MEDS: MORPHINE SULFATE 2 MG/ML INJ IV PUSH PRN (21:20)
--- NOTE | 2017-12-12 21:23 | HHI.PR ---
Subjective Remarks Follow up for dog bite wound, septic arthritis. Patient is currently doing well. Able to move her left fingers but has some pain. No fever, chills. Objective Vitals Vital Signs Date Time Temp Pulse Resp B/P (MAP) Pulse Ox O2 Delivery O2 Flow Rate FiO2 12/12/17 16:00 98.5 107 18 111/86 (94) 96 12/12/17 08:00 98.0 72 18 127/60 (82) 95 12/12/17 03:15 98.0 73 17 142/79 (100) 94 12/12/17 00:00 97.6 88 19 150/67 (94) 96 I/O 12/11/17 12/11/17 12/11/17 12/12/17 12/12/17 12/12/17 07:00 15:00 23:00 07:00 15:00 23:00 Intake Total 100 ml 900 ml 1000 ml Balance 100 ml 900 ml 1000 ml Intake Oral 900 ml 1000 ml IV Total 100 ml # Voids 1 2 3 # Bowel Movements 0 0 0 1 Result Diagram: 12/09/1753212/09/17 0533 Objective Remarks GENERAL: AOX3, NAD. SKIN: Warm and dry. HEAD: Normocephalic. EYES: No scleral icterus. No injection or drainage. NECK: Supple, trachea midline. No JVD or lymphadenopathy. CARDIOVASCULAR: Regular rate and rhythm without murmurs, gallops, or rubs. RESPIRATORY: Breath sounds equal bilaterally. No accessory muscle use. GASTROINTESTINAL: Abdomen soft, non-tender, nondistended. MUSCULOSKELETAL: No cyanosis, or edema. Left arm tied to pole to keep elevated. Able to move fingers. BACK: Nontender without obvious deformity. No CVA tenderness. Procedures 12/08/2017 incision and drainage left hand abscess arthrotomy metacarpophalangeal joint left index finger A/P Problem List: (1) Dog bite of left hand including fingers with infection ICD Code: S61.452A - Open bite of left hand, initial encounter; S61.259A - Open bite of unspecified finger without damage to nail, initial encounter; L08.9 - Local infection of the skin and subcutaneous tissue, unspecified; W54.0XXA - Bitten by dog, initial encounter (2) Diabetes mellitus ICD Code: E11.9 - Type 2 diabetes mellitus without complications Assessment and Plan Ms. Blevins is a 52 year old female who was admitted due to left hand pain, swelling following a dog bite. Her dog is vaccinated. - Dog bite wound of left hand - Left hand abscess - Wound cx grew MSSA resistant to PCN. d/c Vancomycin. - Currently on Unasyn. - Infectious disease evaluated patient and continued Unasyn - Discussed with ID and hand surgery. Patient will likely need IV abx upon discharge - probably Ceftriaxone once a day. - Diabetes mellitus - HbA1c 9.7. Currently on Levemir 5 units Q12, Sliding scale insulin. - Will initiate Metformin and Glimepiride upon discharge. Follow up HbA1C in 3 month. - Will also refer patient to [place] [facility]. Full code. SCDs, ambulation. Mari Montes DO Dec 12, 2017 21:23
--- NOTE | 2017-12-12 23:19 | RADRPT ---
EXAM DATE/TIME: 12/12/2017 22:39 [facility] COMPARISON: No previous studies available for comparison. INDICATIONS : Right arm swelling. MEDICAL HISTORY : Headache. Migraine. Arthritis. Diabetes. SURGICAL HISTORY : Hysterectomy. Left meniscus repair. ENCOUNTER: Initial ACUITY: 2 day PAIN SCORE: 4/10 LOCATION: Right arm. FINDINGS: There is spontaneous flow documented in the brachial, basilic, cephalic, axillary, and subclavian vei ns. The vessels are compressible and augmentation response is documented. No filling defects are se en. The flow is phasic with respiration. Direction of flow in the jugular vein is caudal. CONCLUSION: No DVT right arm. Ranjit Chen MD on December 12, 2017 at 23:16 Board Certified Radiologist. This report was verified electronically.
[2017-12-13 00:30] VITALS: BP 132/67; PULSE 80; RESP 19; TEMP 97.6; O2SAT 97
[2017-12-13] MEDS: AMPICILLIN-SULBACTAM INJ 3 GM in SODIUM CHLORIDE 0.9% INJ 100 ML IV SCH ×4 (03:37→22:19)
[2017-12-13 04:30] VITALS: BP 130/66; PULSE 68; RESP 17; TEMP 98; O2SAT 98
[2017-12-13 08:11] VITALS: BP 153/71; PULSE 74; RESP 20; TEMP 98.5; O2SAT 95
[2017-12-13] MEDS: INSULIN ASPART SUPPLEMENTAL SCALE SQ SCH ×4 (08:39→22:20)
[2017-12-13] MEDS: SODIUM CHLORIDE 0.9% FLUSH 10 ML FLUSH IV FLUSH SCH ×2 (08:39→22:19)
[2017-12-13] MEDS: INSULIN DETEMIR 100 UNITS/ML VIAL SQ SCH ×2 (08:39→22:19)
[2017-12-13 11:59] VITALS: BP 125/73; PULSE 85; RESP 20; TEMP 98.4; O2SAT 94
[2017-12-13 16:33] VITALS: BP 119/64; PULSE 83; RESP 20; TEMP 98.5; O2SAT 96
--- NOTE | 2017-12-13 16:37 | HHI.IDPN ---
Subjective Subjective Remarks doing well no new issues afebrile improving locally Antibiotics unasyn Allergies: Coded Allergies: No Known Allergies (Verified Allergy, Severe, 12/07/17) Objective . Vital Signs Date Time Temp Pulse Resp B/P (MAP) Pulse Ox O2 Delivery O2 Flow Rate FiO2 12/13/17 11:59 98.4 85 20 125/73 (90) 94 12/13/17 08:11 98.5 74 20 153/71 (98) 95 12/13/17 04:30 98.0 68 17 130/66 (87) 98 12/13/17 00:30 97.6 80 19 132/67 (88) 97 12/12/17 21:20 97.9 84 18 136/73 (94) 96 Imaging Last Impressions Upper Extremity Ultrasound 12/12/17 0000 Signed Impressions: Service Date/Time: Tuesday, December 12, 2017 22:39 - CONCLUSION: No DVT right arm. Ranjit Chen MD Physical Exam CONSTITUTIONAL/GENERAL: This is an adequately nourished patient, in no apparent distress. TUBES/LINES/DRAINS: SKIN: No jaundice, rashes, or lesions. Skin temperature appropriate. Not diaphoretic. GASTROINTESTINAL: Abdomen soft, non-tender, nondistended. N MUSCULOSKELETAL: Extremities without clubbing, cyanosis, or edema. No joint tenderness or effusion noted. No calf tenderness. No mottling or clubbing. STATUS LOCALIS: L hand with nearly resolved small amount of barely noticible erythema + wrinkling cw diminishing edema, minimal erythema NEUROLOGICAL: Awake and alert. Motor and sensory grossly within normal limits. Follows commands. Cognitively sharp. Moves all extremities. PSYCHIATRIC: No obvious anxiety/depression. no apparent hallucinations or other psychotic thought process. Assessment & Plan Remarks Sp dog bite with abscess, left hand/index finger and septic arthritis metacarpophalangeal joint, left index finger, MSSA sp I+D cont Unasyn for now CFTX x2.5 weeks Judy Gardner MD Dec 13, 2017 16:37
--- NOTE | 2017-12-13 16:39 | HHI.FF ---
Infusion Therapy Location of Infusion Therapy: Home Health Care IV Infusion Order Patient Information Patient Weight 84 kg Diagnosis: Coded Allergies: No Known Allergies (Verified Allergy, Severe, 12/07/17) Administer Medication Ceftriaxone 2 grams IV q 24 hours Start Treatment: Dec 14, 2017 Stop Treatment: Dec 29, 2017 Additional Information Venous access: Other (midline) Additional Instructions [x] Peripheral flush and dressing changes per protocol [x] Implanted port and central fisher trot line: * Implanted port: 10 ml Normal Saline followed by 5 ml Heparin 100 units/ml Heparin flush after each use and monthly to maintain. [] May leave port accessed during therapy. [] May leave peripheral site accessed for duration of therapy. [x] If patient has SOB or respiratory distress, check oxygen saturation. If less than 90% or clinical signs of respiratory distress, administer oxygen at 2 L/min. via nasal cannula and notify physician. [x] Anaphylaxis/Reaction orders: * Stop infusion. * Keep IV line open with saline flush. * Notify physician. * Monitor vital signs every 15 minutes until symptoms resolve. * Check Oxygen saturation; Oxygen at 2 L/min. via nasal cannula if less than 90% or clinical signs of respiratory distress. * Administer diphenhydramine (Benadryl) 25 mg IV STAT, (unless patient has received as pre-med). May repeat once, if necessary. * Solu-Cortef 250 mg IVP over 30-60 seconds, use 100 mg vials for each dissolution. * Epinephrine (1mg/1 ml) 0.3 mg subcutaneously or IVP now with any signs of respiratory distress. * Check with physician for new additional pre-med orders if patient is re- challenged or re-treated. [x] May remove PICC line when treatment complete, after confirming with Physician. [x] If the patient is admitted to the hospital, the ED, or transferred via [facility] , complete transfer form including medication reconciliation order sheet. Laboratory Tests Weekly Labs: CBC w/diff, Creatinine, LFT's (Hepatic function test) Judy Gardner MD Dec 13, 2017 16:39
[2017-12-13] MEDS ORDERED: EPIN1INJ21 IV PUSH (16:40)
[2017-12-13] MEDS ORDERED: SOLU250I IV PUSH (16:40)
[2017-12-13] MEDS ORDERED: CEFT2INJ IM (16:40)
[2017-12-13] MEDS ORDERED: EPIN1INJ21 SQ (16:40)
--- NOTE | 2017-12-13 19:18 | HHI.PR ---
Subjective Remarks Follow up for dog bite wound, septic arthritis. Patient is doing well. No acute concerns. No fever, chills. Objective Vitals Vital Signs Date Time Temp Pulse Resp B/P (MAP) Pulse Ox O2 Delivery O2 Flow Rate FiO2 12/13/17 16:33 98.5 83 20 119/64 (82) 96 12/13/17 11:59 98.4 85 20 125/73 (90) 94 12/13/17 08:11 98.5 74 20 153/71 (98) 95 12/13/17 04:30 98.0 68 17 130/66 (87) 98 12/13/17 00:30 97.6 80 19 132/67 (88) 97 12/12/17 21:20 97.9 84 18 136/73 (94) 96 I/O 12/12/17 12/12/17 12/12/17 12/13/17 12/13/17 12/13/17 07:00 15:00 23:00 07:00 15:00 23:00 Intake Total 1000 ml 650 ml 850 ml 960 ml Balance 1000 ml 650 ml 850 ml 960 ml Intake Oral 1000 ml 550 ml 750 ml 960 ml IV Total 100 ml 100 ml # Voids 3 0 2 2 # Bowel Movements 0 1 0 0 2 Result Diagram: 12/09/1753212/09/17532 Objective Remarks GENERAL: AOX3, NAD. SKIN: Warm and dry. HEAD: Normocephalic. EYES: No scleral icterus. No injection or drainage. NECK: Supple, trachea midline. No JVD or lymphadenopathy. CARDIOVASCULAR: Regular rate and rhythm without murmurs, gallops, or rubs. RESPIRATORY: Breath sounds equal bilaterally. No accessory muscle use. GASTROINTESTINAL: Abdomen soft, non-tender, nondistended. MUSCULOSKELETAL: No cyanosis, or edema. Left arm tied to pole to keep elevated. Able to move fingers. BACK: Nontender without obvious deformity. No CVA tenderness. Procedures 12/08/2017 incision and drainage left hand abscess arthrotomy metacarpophalangeal joint left index finger A/P Problem List: (1) Dog bite of left hand including fingers with infection ICD Code: S61.452A - Open bite of left hand, initial encounter; S61.259A - Open bite of unspecified finger without damage to nail, initial encounter; L08.9 - Local infection of the skin and subcutaneous tissue, unspecified; W54.0XXA - Bitten by dog, initial encounter (2) Diabetes mellitus ICD Code: E11.9 - Type 2 diabetes mellitus without complications Assessment and Plan Ms. Blevins is a 52 year old female who was admitted due to left hand pain, swelling following a dog bite. Her dog is vaccinated. - Dog bite wound of left hand - Left hand abscess - Wound cx grew MSSA resistant to PCN. d/c Vancomycin. - Currently on Unasyn. - Infectious disease evaluated patient and continued Unasyn - Discussed with ID and hand surgery. Likely discharge on 12/14/2017 after midline placed. - Diabetes mellitus - HbA1c 9.7. Currently on Levemir 5 units Q12, Sliding scale insulin. - Will initiate Metformin and Glimepiride upon discharge. Follow up HbA1C in 3 month. - Will also refer patient to [place] [facility]. Full code. SCDs, ambulation. Mari Montes DO Dec 13, 2017 19:18
[2017-12-13 20:00] VITALS: BP 136/63; PULSE 89; RESP 20; TEMP 98.4; O2SAT 94
[2017-12-14] MEDS: AMPICILLIN-SULBACTAM INJ 3 GM in SODIUM CHLORIDE 0.9% INJ 100 ML IV SCH ×2 (03:00→09:21)
[2017-12-14 04:00] VITALS: BP 130/61; PULSE 71; RESP 18; TEMP 98.3; O2SAT 96
[2017-12-14] MEDS: INSULIN ASPART SUPPLEMENTAL SCALE SQ SCH (08:00)
[2017-12-14 08:20] VITALS: BP 142/80; PULSE 73; RESP 18; TEMP 97.8; O2SAT 96
[2017-12-14] MEDS: SODIUM CHLORIDE 0.9% FLUSH 10 ML FLUSH IV FLUSH SCH (09:00)
[2017-12-14] MEDS: INSULIN DETEMIR 100 UNITS/ML VIAL SQ SCH (09:00)
[2017-12-14 10:56] LABS: AUTOMATED NEUTROPHIL # 5.8 TH/MM3 (1.8-7.7); BASOPHIL # 0.1 TH/MM3 (0-0.2); BASOPHIL % 1.1 % (0.0-2.0); EOSINOPHIL # 0.5 TH/MM3 (0-0.4); EOSINOPHIL % 5.7 % (0.0-4.0); HEMATOCRIT 40.4 % (35.0-46.0); HEMOGLOBIN 13.9 GM/DL (11.6-15.3); LYMPH % 24.5 % (9.0-44.0); LYMPHOCYTE # 2.3 TH/MM3 (1.0-4.8); MEAN CELL VOLUME 86.9 FL (80.0-100.0); MEAN CORPUSCULAR HEMOGLOBIN 29.9 PG (27.0-34.0); MEAN CORPUSCULAR HGB CONC 34.5 % (32.0-36.0); MEAN PLATELET VOLUME 8.1 FL (7.0-11.0); MONO % 5.7 % (0.0-8.0); MONOCYTE # 0.5 TH/MM3 (0-0.9); PLATELET COUNT 314 TH/MM3 (150-450); RED BLOOD COUNT 4.65 MIL/MM3 (4.00-5.30); RED CELL DISTRIBUTION WIDTH 12.2 % (11.6-17.2); WHITE BLOOD COUNT 9.2 TH/MM3 (4.0-11.0)
[2017-12-14] MEDS ORDERED: cefTRIAXone INJ 2,000 MG in SODIUM CHLORIDE 0.9% INJ 100 ML IV SCH (11:00)
[2017-12-14 11:11] LABS: ALT (GPT) 20 U/L (10-53); AST (GOT) 11 U/L (15-37); BICARBONATE 28.9 MEQ/L (21.0-32.0); BLOOD UREA NITROGEN 13 MG/DL (7-18); CHLORIDE 103 MEQ/L (98-107); CREATININE 0.94 MG/DL (0.50-1.00); GLOMERULAR FILTRATION RATE 62 ML/MIN (>89); GLUCOSE,RANDOM 252 MG/DL (74-106); SODIUM (NA) 139 MEQ/L (136-145)
[2017-12-14 11:13] LABS: ALKALINE PHOSPHATASE 56 U/L (45-117); TOTAL BILIRUBIN ADULT 0.7 MG/DL (0.2-1.0); TOTAL PROTEIN 7.3 GM/DL (6.4-8.2)
[2017-12-14] MEDS ORDERED: TRAM50TA PO (11:26)
[2017-12-14] MEDS ORDERED: METF500T4 PO (11:26)
[2017-12-14] MEDS ORDERED: GLIM2TAB PO (11:26)
[2017-12-14 12:35] VITALS: BP 132/72; PULSE 80; RESP 18; TEMP 98.1; O2SAT 95
--- NOTE | 2017-12-15 00:04 | HHI.DS ---
Discharge Summary Admission Date Dec 08, 2017 at 01:13 Discharge Date: Dec 14, 2017 Admitting Diagnosis (1) Dog bite of left hand including fingers with infection ICD Code: S61.452A - Open bite of left hand, initial encounter; S61.259A - Open bite of unspecified finger without damage to nail, initial encounter; L08.9 - Local infection of the skin and subcutaneous tissue, unspecified; W54.0XXA - Bitten by dog, initial encounter (2) Diabetes mellitus ICD Code: E11.9 - Type 2 diabetes mellitus without complications Procedures 12/08/2017 incision and drainage left hand abscess arthrotomy metacarpophalangeal joint left index finger Brief History - From Admission 52-year-old female with no significant past medical history who presents overnight with 3 day history of constant sharp pain in the left and radiating to her fingers. She was bitten by her dog 3 days ago. She denies any chest pain, shortness of breath, lightheadedness, dizziness. CBC/BMP: 12/14/17 1043 12/14/17 1043 Significant Findings Laboratory Tests Test 12/14/17 10:43 Eosinophils (%) (Auto) 5.7 % (0.0-4.0) Eosinophils # (Auto) 0.5 TH/MM3 (0-0.4) Random Glucose 252 MG/DL (74-106) Albumin 3.0 GM/DL (3.4-5.0) Aspartate Amino Transf (AST/SGOT) 11 U/L (15-37) Estimat Glomerular Filtration Rate 62 ML/MIN (>89) Imaging Last Impressions Upper Extremity Ultrasound 12/12/17 0000 Signed Impressions: Service Date/Time: Tuesday, December 12, 2017 22:39 - CONCLUSION: No DVT right arm. Ranjit Chen MD PE at Discharge GENERAL: AOX3, NAD. SKIN: Warm and dry. HEAD: Normocephalic. EYES: No scleral icterus. No injection or drainage. NECK: Supple, trachea midline. No JVD or lymphadenopathy. CARDIOVASCULAR: Regular rate and rhythm without murmurs, gallops, or rubs. RESPIRATORY: Breath sounds equal bilaterally. No accessory muscle use. GASTROINTESTINAL: Abdomen soft, non-tender, nondistended. MUSCULOSKELETAL: No cyanosis, or edema. Left arm tied to pole to keep elevated. Able to move fingers. BACK: Nontender without obvious deformity. No CVA tenderness. Pt update on day of discharge Patient is doing well. No fever, chills. Wants to go home. Hospital Course Ms. Blevins is a 52 year old female who was admitted due to left hand pain, swelling following a dog bite. Her dog is vaccinated. - Sepsis (patient met sepsis criteria by Heart rate > 90 and RR > 20 along with known infection). Resolved. No organ damage. - Dog bite wound of left hand - Left hand abscess - Wound cx grew MSSA resistant to PCN. d/c Vancomycin. - Patient was on unasyn, ID recommended Ceftriaxone upon discharge. - Discussed with ID and hand surgery - okay to d/c patient. - Diabetes mellitus - HbA1c 9.7. Currently on Levemir 5 units Q12, Sliding scale insulin. - Will initiate Metformin and Glimepiride upon discharge. Follow up HbA1C in 3 month. - Will also refer patient to [facility]. Full code. SCDs, ambulation. Pt Condition on Discharge: Good Discharge Disposition: Disch w/ Home Health Serv Discharge Time: > 30 minutes Discharge Instructions DIET: Follow Instructions for: Diabetic Diet Activities you can perform: Regular-No Restrictions Follow up Referrals: Appointment for Follow Up Endocrinology - 2 Weeks with Fabricio Spear MD Hand Surgery PCP Follow-up - 1 Week PCP Follow-up New Medications: Ceftriaxone Inj (Ceftriaxone Inj) 2 Gram Inj 2 GM IM Q24H for Infection for 18 Days, VIAL 0 Refills Epinephrine Inj (Epinephrine Inj) 1 Mg/Ml (1 Ml) Inj 0.3 MG IV PUSH ONCE PRN for ALLERGIC REACTION, #1 VIAL Epinephrine Inj (Epinephrine Inj) 1 Mg/Ml (1 Ml) Inj 0.3 MG SQ ONCE PRN for ALLERGIC REACTION, #1 VIAL Give with any signs of respiratory distress. Glimepiride (Glimepiride) 2 Mg Tab 2 MG PO DAILY for Blood Sugar Management, #30 TAB 11 Refills Take with breakfast or first main meal Hydrocortisone Inj (Solu-Cortef Inj) 250 Mg/2 Ml Inj 250 MG IV PUSH ONCE PRN for ALLERGIC REACTION, #1 VIAL 0 Refills Give over 30-60 seconds. Metformin ER (Metformin ER) 500 Mg Pavel 500 MG PO BID for Blood Sugar Management, #60 TAB 5 Refills With evening meal Tramadol (Tramadol) 50 Mg Tab 50 MG PO Q8H PRN for PAIN, #15 TAB 0 Refills Mari Montes DO Dec 15, 2017 00:04
== END 2017-12-14 15:30 | disposition home health service (06) | DRG 854 ==
LOC: NEDDLT 12-08 01:03 → NEPFCDU 12-08 01:13 → HSDI 12-08 22:15 → N05B 12-08 22:33 → HSDI 12-08 22:35 → HPAC 12-08 23:04 → N05B 12-09 14:43
PROVIDERS: ADMIT Hospitalist; ATTEND Hospitalist
PROC: 0JBK0ZZ Excision of Left Hand Subcutaneous Tissue and Fascia, Open Approach (ICD-10-PCS; 2017-12-08)
PROC: 0R9V0ZZ Drainage of Left Metacarpophalangeal Joint, Open Approach (ICD-10-PCS; principal; 2017-12-08 21:00)
DX: A41.01 Sepsis due to Methicillin susceptible Staphylococcus aureus (principal); M00.9 Pyogenic arthritis, unspecified; L02.512 Cutaneous abscess of left hand; S61.251A Open bite of left index finger without damage to nail, initial encounter; L08.9 Local infection of the skin and subcutaneous tissue, unspecified; E11.65 Type 2 diabetes mellitus with hyperglycemia; S61.452A Open bite of left hand, initial encounter; W54.0XXA Bitten by dog, initial encounter; Z16.11 Resistance to penicillins
CPT/HCPCS: 36569; 73201; 76937; 80048; 80053; 82948; 83036; 83605; 85025; 86403; 87015; 87040; 87070; 87102; 87116; 87147; 87186; 87205; 87206; 90471; 90714; 93005; 93971; 96361; 96365; 96375; J0295; J1815; J1885; J2270; J2405; J2543; J3010; J3370; J7030; J7050; Q9967